=== PATIENT | male | born 1975 | race Caucasian/White ===

== ENCOUNTER → 2016-08-23 | Outpatient (CLI) | payer OTHER ==
[~2016-08-23] MED LIST: ASPIRIN325 MG PO; DILAUDID 2MG(HYD2 MG PO; FEOSOL325 MG PO; MIRALAX17 GM PO; OXYCONTIN EXTEN10 MG PO; PEPCID20 MG PO; SOMA350 MG PO; SURFAK240 MG PO; TYLENOL325 MG PO
[2016-08-23 11:01] LABS: BASOPHIL # 0.1 K/uL (0.0-0.2); BASOPHIL % 1.2 %; EOSINOPHIL # 0.4 K/uL (0.0-0.5); EOSINOPHIL % 5.6 %; HEMATOCRIT 48.4 % (37.0-53.0); HEMOGLOBIN 16.1 g/dL (12.0-17.0); IMMATURE GRANULOCYTE % 0.4 %; LYMPHOCYTE # 2.3 K/uL (0.8-4.0); LYMPHOCYTE % 30.4 %; MCH 29.8 pg (27.0-34.0); MCHC 33.3 gm/dL (32.0-36.5); MCV 89.6 fl (83.0-98.0); MONOCYTE # 0.7 K/uL (0.0-1.0); MONOCYTE % 8.6 %; MPV 9.4 fl (9.4-12.4); NEUTROPHIL # (ANC) 4.1 K/uL (1.4-9.0); NEUTROPHIL % 53.8 %; NRBC % 0 /100WBC (0-0.00); PLATELET COUNT 285 K/uL (150-450); RDW-CV 14.8 % (11.9-14.6); WBC 7.6 K/uL (4.0-11.0)
== END | disposition disaster alternative care site (69) ==
LOC: GLAB 10:35
PROVIDERS: Orthopaedic Surgery
DX: S82.252 Displaced comminuted fracture of shaft of left tibia (principal); X58.XXXD Exposure to other specified factors, subsequent encounter